=== PATIENT | female | born 1945 | race Caucasian/White ===

== ENCOUNTER 2017-12-23 11:04 | Emergency (ER) | payer MEDICARE, OTHER ==
[2017-12-23 11:25] VITALS: TEMP 97.4
[2017-12-23] MEDS ORDERED: MECLIZINE HCL 12.5 MG TAB PO ONE (11:27)
--- NOTE | 2017-12-23 11:32 | ED.PDOC ---
History of Present Illness - General Chief Complaint: General Stated Complaint: dizziness,vomiting Time Seen by Provider: 12/23/17 11:27 Source: patient - History of Present Illness Initial Comments: DIZZY FOR THE PAST THREE DAYS, DENIES NAUSEA, VOMITING, PARSONS, TINNITUS OR FEVER. Severity: moderate Improving Factors: nothing Worsening Factors: nothing Associated Symptoms: denies symptoms Allergies/Adverse Reactions: Allergies NO KNOWN ALLERGY Allergy (Verified 12/23/17 11:25) Home Medications: Ambulatory Orders Glimepiride 2 mg PO DAILY 12/23/17 Meclizine HCl [Antivert] 12.5 mg PO Q8HRS #15 tab 12/23/17 Metformin HCl 1,000 mg PO BID 12/23/17 Pravastatin Sodium 20 mg PO BEDTIME 12/23/17 Ramipril 5 mg PO DAILY 12/23/17 Review of Systems - Review of Systems Constitutional: States: no symptoms reported EENTM: States: no symptoms reported Respiratory: States: no symptoms reported Cardiology: States: no symptoms reported Gastrointestinal/Abdominal: States: no symptoms reported Genitourinary: States: no symptoms reported Musculoskeletal: States: no symptoms reported Skin: States: no symptoms reported Neurological: States: no symptoms reported Endocrine: States: no symptoms reported Hematologic/Lymphatic: States: no symptoms reported Past Medical History (General) - Patient Medical History Hx Stroke: No Hx Congestive Heart Failure: No Hx Hypertension: Yes Hx Diabetes: Yes Surgical History: no surgical history - Vaccination History Hx Influenza Vaccination: No Hx Pneumococcal Vaccination: Yes - Social History Hx Tobacco Use: No Family Medical History - Family History Mother Family History: Unknown Living Status: Unknown Physical Exam - Physical Exam General Appearance: Alert, No apparent distress, Well Developed Eye Exam: bilateral normal Ears, Nose, Throat: hearing grossly normal, normal ENT inspection, normal pharynx Neck: non-tender, full range of motion, supple Respiratory: chest non-tender, lungs clear, normal breath sounds, no respiratory distress, no accessory muscle use Cardiovascular/Chest: normal peripheral pulses, regular rate, rhythm, no edema, no gallop, no JVD, no murmur Peripheral Pulses: radial,right: 2+, radial,left: 2+ Gastrointestinal/Abdominal: normal bowel sounds, non tender, soft, no organomegaly, no pulsatile mass Rectal Exam: deferred Back Exam: normal inspection Extremity: normal range of motion, non-tender, normal inspection 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 Copy, Patient Portal Self Enrollment Diet: resume usual diet Activity: increase activity as tolerated Referrals: CAROLINA HANEY [Primary Care Provider] - 1-2 Weeks Prescriptions: Meclizine HCl [Antivert] 12.5 mg PO Q8HRS #15 tab Home Medications: Ambulatory Orders Glimepiride 2 mg PO DAILY 12/23/17 Meclizine HCl [Antivert] 12.5 mg PO Q8HRS #15 tab 12/23/17 Metformin HCl 1,000 mg PO BID 12/23/17 Pravastatin Sodium 20 mg PO BEDTIME 12/23/17 Ramipril 5 mg PO DAILY 12/23/17
--- NOTE | 2017-12-23 12:20 | RAD ---
Procedure: CT HEAD WITHOUT IV CONTRAST Exam Date: 12/23/2017 11:27 AM CDT Ordering Provider: Enrique Manning Clinical Indication: Dizziness. Vertigo Comparison: None Technique: CT images of the head were obtained without contrast administration. Coronal and sagittal reformats were obtained. This exam was performed according to our departmental dose-optimization program which includes automated exposure control, adjustment of the mA and/or kV according to patient size and/or use of iterative reconstruction technique. Findings: There is no acute cortical infarction, hemorrhage, midline shift, mass effect, or hydrocephalus. The calvaria and skull base are unremarkable. Paranasal sinuses and mastoid air cells are well aerated. Impression: 1. No acute intracranial abnormality. Procedure: XR CHEST 1 VIEW Exam Date: 12/23/2017 11:27 AM CDT Ordering Provider: Enrique Manning Clinical Indication: SOB Comparison: None Findings: Lungs are clear. Heart size is within normal limits. Vascular calcifications in the aorta. No acute osseous abnormality. Impression: No acute pulmonary process. Electronically signed by: Ayanna Bullock MD 12/23/2017 12:19 PM CDT
[2017-12-23 13:16] VITALS: BP 154/78; O2SAT 96
== END 2017-12-23 13:10 | disposition home or self-care (01) ==
LOC: ER 11:04
DX: H83.03 Labyrinthitis, bilateral (principal); I10 Essential (primary) hypertension; E11.9 Type 2 diabetes mellitus without complications; Z79.84 Long term (current) use of oral hypoglycemic drugs

== ENCOUNTER 2020-03-30 12:27 | Emergency (ER) | payer MEDICARE, OTHER ==
--- NOTE | 2020-03-30 12:31 | ED.PDOC ---
History of Present Illness - General Time Seen by Provider: 03/30/20 12:30 Source: patient - History of Present Illness Initial Comments: 74 yo female with PMH of HTN, DM2 who presents with cc of left low back pain. Patient reports symptoms began about 5 weeks ago just after helping her daughter to move and carrying some heavier items up a flight of stairs repeatedly. Denies any acute pain or injuries at that time reports the pain the following day. Pain has been fairly constant since onset. It is located to the left lower back with each, constant, aching and sharp, reports as 10/10 severity, worse with lying flat, she was taking Celebrex for a while but has only been using heating pads the past few days with mild relief. She was seen at [facility] in [place] also recently for this issue but wasn't able to tolerate a CT scan so she just left the ED. Denies any history of chronic back pain or injuries. No prior back surgeries. Denies any dysuria/hematuria, fevers, chills, abd pain, n/v. She does report decreased appetite and loss of a few lbs of weight since the pain began. Denies any shooting pains down the legs, leg weakness or numbness, saddle anesthesia. PCP is Dr. Carolina Cisneros in [place]. Allergies/Adverse Reactions: Allergies NO KNOWN ALLERGY Allergy (Verified 03/30/20 13:03) Home Medications: Ambulatory Orders Glimepiride 2 mg PO DAILY 12/23/17 Meclizine HCl [Antivert] 12.5 mg PO Q8HRS #15 tab 12/23/17 Metformin HCl [Metformin Hydrochloride] 1,000 mg PO BID 12/23/17 Pravastatin Sodium 20 mg PO BEDTIME 12/23/17 Ramipril 5 mg PO DAILY 12/23/17 Acetaminophen W/ Codeine [Tylenol W/ CODEINE #3] 1 ea PO Q6H PRN 7 Days #10 ea 03/30/20 Cyclobenzaprine HCl [Flexeril] 10 mg PO Q8H PRN 30 Days #30 tab 03/30/20 Review of Systems - Review of Systems Review of Systems: 03/30/20 12:53 as per HPI All other Systems: Reviewed and Negative Past Medical History (General) - Patient Medical History Hx Stroke: No Hx Congestive Heart Failure: No Hx Hypertension: Yes Hx Diabetes: Yes - Vaccination History Hx Influenza Vaccination: No Hx Pneumococcal Vaccination: Yes - Social History Hx Tobacco Use: No Family Medical History - Family History Mother Family History: Unknown Living Status: Unknown Physical Exam - Physical Exam General Appearance: Alert, Comfortable, No apparent distress Eye Exam: bilateral normal Ears, Nose, Throat: hearing grossly normal, normal ENT inspection, normal phar ynx Neck: full range of motion, supple, normal inspection Respiratory: lungs clear, normal breath sounds, no respiratory distress, no accessory muscle use Cardiovascular/Chest: normal peripheral pulses, regular rate, rhythm, no edema, no gallop, no JVD, no murmur Peripheral Pulses: radial,right: 2+, radial,left: 2+ Gastrointestinal/Abdominal: non tender, soft, no organomegaly Back Exam: normal inspection, no CVA tenderness, no vertebral tenderness, decreased range of motion - Moderately limited to the lumbar spine in all directions., other - There is moderate left lower paralumbar muscular tenderness to palpation with spasm present. Straight leg raises negative bilaterally, strength and sensation is normal throughout. 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 Consider also lumbar disc herniation, facet arthropathy, neuroforaminal stenosis, spinal stenosis, vertebral compression fracture, UTI, kidney stone, other -Patient stable, no acute distress, vitals within normal limits -Obtain x-ray imaging of the lumbar spine, blood work, urinalysis -Tylenol 1000 mg p.o. and Flexeril 10 mg p.o. for pain 03/30/20 14:26 -X-ray imaging of the lumbar spine reveals wedge deformity of T12-L4, chronicity unknown. Otherwise no acute processes noted. Findings of osteopenia also noted. Lab work is largely unremarkable. -Patient remains stable, reports pain is markedly improved following Tylenol and Flexeril in the ED. -Discussed all findings with patient. I suspect that her wedge deformity findings are likely chronic in nature. Suspect her back pain is likely from acute left paralumbar muscle strain/spasm. Advised to continue [id number] analgesics. Will also provide prescriptions of as needed Flexeril and Tylenol 3. Advised to follow-up closely with her PCP for further evaluation of back pain as well as osteopenia. -Discharged home in good condition, return warnings discussed. Rikki Baires MD Billing #[id number] 03/30/20 12:32 IV Care:Saline Lock per Protoc QSHIFT Sodium Chloride 0.9% (Flush) [Saline Flush Syringe] 10 ml IV PRN PRN URINALYSIS Stat Laboratory Results - last 24 hr 03/30/20 03/30/20 12:54 12:54 WBC 9.0 RBC 4.19 L Hgb 12.8 Hct 36.0 MCV 85.9 MCH 30.5 MCHC 35.5 RDW 13.6 Plt Count 359 MPV 7.7 Absolute Neuts (auto) 6.20 Absolute Lymphs (auto) 2.00 Absolute Monos (auto) 0.60 Absolute Eos (auto) 0.10 Absolute Basos (auto) 0.00 Neutrophils % 69.1 Lymphocytes % 22.6 Monocytes % 6.5 Eosinophils % 1.4 Basophils % 0.4 Sodium 136 Potassium 4.0 Chloride 98 L Carbon Dioxide 26 Anion Gap 16.0 BUN 26 H Creatinine 0.72 BUN/Creatinine Ratio 36.1 H Random Glucose 102 Serum Osmolality 276.9 Calcium 9.7 Total Bilirubin 0.6 Direct Bilirubin 0.1 Indirect Bilirubin 0.5 AST 22 ALT 17 Alkaline Phosphatase 94 Serum Total Protein 7.7 Albumin 4.1 Lipase 32 Departure - Departure Clinical Impression: Osteopenia determined by x-ray Strain of lumbar paraspinal muscle Qualifiers: Encounter type: initial encounter Qualified Code(s): S39.012A - Strain of muscle, fascia and tendon of lower back, initial encounter Time of Disposition: 14:19 Disposition: Discharge to Home or Self Care Condition: Good Instructions: Muscle Spasms (DC), Back Muscle Strain (DC), Osteoporosis (DC) Diet: resume usual diet Activity: increase activity as tolerated Referrals: CAROLINA CISNEROS [Primary Care Provider] - 1-2 Weeks Prescriptions: Cyclobenzaprine HCl [Flexeril] 10 mg PO Q8H PRN 30 Days #30 tab PRN Reason: Muscle Spasms Acetaminophen W/ Codeine [Tylenol W/ CODEINE #3] 1 ea PO Q6H PRN 7 Days #10 ea PRN Reason: Pain Home Medications: Ambulatory Orders Glimepiride 2 mg PO DAILY 12/23/17 Meclizine HCl [Antivert] 12.5 mg PO Q8HRS #15 tab 12/23/17 Metformin HCl [Metformin Hydrochloride] 1,000 mg PO BID 12/23/17 Pravastatin Sodium 20 mg PO BEDTIME 12/23/17 Ramipril 5 mg PO DAILY 12/23/17 Acetaminophen W/ Codeine [Tylenol W/ CODEINE #3] 1 ea PO Q6H PRN 7 Days #10 ea 03/30/20 Cyclobenzaprine HCl [Flexeril] 10 mg PO Q8H PRN 30 Days #30 tab 03/30/20 Additional Instructions: I advise you to refrain from lifting anything more than 5 pounds as well as avoid excessive bending, squatting, overhead reaching, prolonged standing or walking for the next 7 to 10 days while you are recovering. You may continue to take [id number] anti-inflammatories for pain such as Tylenol 650 mg every 6 hours as needed and ibuprofen 600 mg every 6 hours as needed. You may take the Flexeril as directed for muscle spasms and the Tylenol 3 as directed for breakthrough pain. Do not drive or operate heavy machinery when taking this medication as it may make you drowsy. I advised follow-up with his primary care physician in the next 1 to 2 weeks for repeat evaluation or sooner as needed. Return to the ED if you develop any concerning symptoms such as weakness or numbness of the legs, numbness of the groin or genitalia region, incontinence or retention of stool or urine, etc. On your x-ray imaging today you were noted to have some compression deformity of several of the bony vertebrae of your lower thoracic and lumbar spine which is likely chronic in nature. It is advised that you have follow-up MRI imaging of your back to further evaluate which will need to be ordered by your primary care physician. You were also noted to have osteopenia (low bone density) on your x-ray imaging this visit. Your primary care physician will also need to follow this up and possibly screen you for osteoporosis (more severe than osteopenia which places you at high risk for fractures).
[2020-03-30] MEDS ORDERED: SODIUM CHLORIDE 0.9% 1000ML 1,000 ML IVS ONE (12:32)
[2020-03-30] MEDS ORDERED: SODIUM CHLORIDE 0.9% (FLUSH) 10 ML SYG IV PRN (12:32)
[2020-03-30] MEDS ORDERED: ACETAMINOPHEN 500 MG TAB PO ONE (12:48)
[2020-03-30] MEDS ORDERED: CYCLOBENZAPRINE HCL 10 MG TAB PO ONE (12:48)
[2020-03-30 13:03] VITALS: TEMP 97.8; O2SAT 96
--- NOTE | 2020-03-30 13:27 | RAD ---
3 radiographs lumbar spine Indication: acute left lower back pain Comparison: None. Impression: Age-indeterminate wedge deformities of L4, L3, L2, L1, T12, T11 noted. Changes most pronounced at T12 where there is 50% height loss. Further characterization with MRI versus bone scan recommended to evaluate chronicity. Mild to moderate disc space height loss throughout the lumbar spine Multiple calcified gallstones suspected. Osteopenia. If this is a new finding, DEXA scan recommended as well as evaluation for possible osteoporosis treatment. Electronically signed by: Shane Banegas MD 03/30/2020 1:25 PM CDT
[2020-03-30 14:45] VITALS: BP 110/73
== END 2020-03-30 14:25 | disposition home or self-care (01) ==
LOC: ER 12:27
DX: S39.012A Strain of muscle, fascia and tendon of lower back, initial encounter (principal); M85.80 Other specified disorders of bone density and structure, unspecified site; I10 Essential (primary) hypertension; E11.9 Type 2 diabetes mellitus without complications; X50.0XXA Overexertion from strenuous movement or load, initial encounter; Z79.84 Long term (current) use of oral hypoglycemic drugs; Z79.899 Other long term (current) drug therapy; Y93.E6 Activity, residential relocation; Y92.9 Unspecified place or not applicable